=== PATIENT | female | born 1995 | race Two or more races ===

== ENCOUNTER 2016-08-07 12:08 | Emergency (ER) | payer OTHER ==
--- NOTE | 2016-08-07 14:39 | RAD ---
indication: Following trauma to the left temporal bone August 05, 2016 the patient reports "memory loss" right neck pain and bilateral arm numbness. COMPARISON: None A CT scan of the brain and c-spine was performed without intravenous contrast enhancement. Contiguous axial sections were obtained from the lung apices through the vertex. BRAIN: The ventricles, cisterns and sulci are within normal limits. No significant focal abnormality or mass effect is seen. The molina-white differentiation is adequately maintained. There is no evidence for intracranial hemorrhage. No significant bony abnormality is present. The mastoid air cells are appropriately aerated. The visualized paranasal sinuses are clear. C-SPINE: On the sagittal view images the cervical spine exhibits reversal of the normal cervical lordosis. The vertebral bodies and facet joints are otherwise appropriately aligned. There is no acute fracture or dislocation. The dens is intact. There is no widening of the atlantodental interval. There is no prevertebral soft tissue edema. The surrounding cervical spine musculature does not exhibit any gross inflammatory change. There is no hyperdense material in the cervical canal to indicate hemorrhage. There is no gross lymphadenopathy visualized. The visualized portion of the lung apices are clear. IMPRESSION: 1. No calvarial fracture or acute intracranial hemorrhage. 2. There is reversal of the normal cervical lordosis without identification of acute fracture or dislocation. In this clinical setting this appearance could be secondary to muscle spasm.
--- NOTE | 2016-08-07 15:05 | ED ---
Wero Haynes Billy, scribed for Carlos Ga MD on 08/07/16 at 1345 . Head Injury - HPI Summary HPI Summary: Patient is a 20 year-old female coming to [facility] for evaluation of a head injury 2 days ago. She had been skateboarding when the left temporal region of her head hit the asphalt. She was not wearing a helmet at the time and denies any LOC. She states that she did not have any significant symptoms at the time of the injury, but she had difficulty remembering her co-workers names yesterday, and she also felt nauseated later on in the day. This morning, she woke up with numbness in her left arm lasting 2 minutes. She fell back asleep and woke up on her back with bilateral arm numbness which also resolved after 2 minutes. At this time, she denies numbness in the arms, but she has "pins and needles in her hands, but they're almost back to normal." She has some photophobia. She also has had neck pain after the fall, which has improved with warm compresses. She denies any other injury or trauma to her trunk or extremities. - History Of Current Complaint Chief Complaint: EDHeadInjury Stated Complaint: HIT HEAD,CONFUSION Time Seen by Provider: 08/07/16 12:57 Hx Obtained From: Patient Mechanism Of Injury: Fall From A Standing Position - while skateboarding Onset/Duration: Traumatic Onset of Pain: Immediate Severity Currently: Moderate Severity Initially: Moderate Pain Intensity: 2 Pain Scale Used: 0-10 Numeric Location of Head Injury: Temporal Aggravating Factor(s): Other: - none Alleviating Factor(s): Other: - none Associated Signs And Symptoms: Confusion, Neck Pain, Nausea, Numbness, Visual Changes - photophobia - Allergies/Home Medications Allergies/Adverse Reactions: Allergies Allergy/AdvReac Type Severity Reaction Status Date / Time Amoxicillin Allergy Rash Verified 09/06/14 10:02 PMH/Surg Hx/FS Hx/Imm Hx Respiratory History: Reports: Hx Asthma - IN THE PAST, Hx Sleep Apnea Musculoskeletal History: Reports: Other Musculoskeletal History - MUSCLE & JOINT PAIN-GENERALIZED-? FIBROMYALGIA Sensory History: Reports: Hx Contacts or Glasses - GLASSES Denies: Hx Hearing Aid Opthamlomology History: Reports: Hx Contacts or Glasses - GLASSES - Surgical History Hx Anesthesia Reactions: No Infectious Disease History: No Infectious Disease History: Denies: Traveled Outside the [place] in Last 30 Days - Family History Known Family History: Positive: Diabetes - Social History Alcohol Use: Daily Substance Use Type: Reports: None Smoking Status (MU): Light Every Day Tobacco Smoker Review of Systems Positive: Photophobia. Negative: Blurred Vision, Diplopia Positive: Nausea. Negative: Vomiting Musculoskeletal: Other - Neck pain Neurological: Other - confusion Positive: Paresthesia, Numbness All Other Systems Reviewed And Are Negative: Yes Physical Exam Triage Information Reviewed: Yes Vital Signs On Initial Exam: Initial Vitals Temp Pulse Resp BP Pulse Ox 98.2 F 68 18 138/67 100 08/07/16 12:18 08/07/16 12:18 08/07/16 12:18 08/07/16 12:18 08/07/16 12:18 Vital Signs Reviewed: Yes Appearance: Positive: Well-Appearing, No Pain Distress Skin: Positive: Warm, Skin Color Reflects Adequate Perfusion, Dry Head/Face: Positive: Normal Head/Face Inspection Eyes: Positive: EOMI, TAMAR ENT: Positive: Normal ENT inspection Neck: Positive: Supple, Nontender Respiratory/Lung Sounds: Positive: Clear to Auscultation, Breath Sounds Present Cardiovascular: Positive: RRR Abdomen Description: Positive: Nontender, Soft Musculoskeletal: Positive: Normal, Strength/ROM Intact Neurological: Positive: Normal, Sensory/Motor Intact, Alert, Oriented to Person Place, Time Psychiatric: Positive: Affect/Mood Appropriate - Yaneli Coma Scale Coma Scale Total: 15 Diagnostics - Vital Signs Vital Signs Temp Pulse Resp BP Pulse Ox 08/07/16 12:47 98.2 F 68 18 138/67 98 08/07/16 12:18 98.2 F 68 18 138/67 100 - Laboratory Lab Statement: Any lab studies that have been ordered have been reviewed, and results considered in the medical decision making process. - CT Brain CT Interpretation Completed By: Radiologist - 1. No calvarial fracture or acute intracranial hemorrhage. 2. There is reversal of the normal cervical lordosis without identification of acute fracture or dislocation. In this clinical setting this appearance could be secondary to muscle spasm. Cervical Spine CT Interpretation Completed By: Radiologist - 1. No calvarial fracture or acute intracranial hemorrhage. 2. There is reversal of the normal cervical lordosis without identification of acute fracture or dislocation. In this clinical setting this appearance could be secondary to muscle spasm. Head Injury Course/Dx Course Of Treatment: NO CRITICAL CARE TIME Assessment/Plan: WELL IN ED. NORMAL NEUROLOGIC EXAM. RADICULOPATHY SX GONE. DISCUSSED CONCUSSION, NECK INJURY, RADICULOPTHY WITH PATIENT. SHE WILL F/U WITH PMD; WILL RETURN TO ED FOR AN RETURN/WORSENING OF RADICULOPATHY SX. PATIENT MAY NEED AN MRI IF SX RETURN. DISCHARGE HOME STABLE. - Diagnoses Provider Diagnoses: Concussion, Acute neck pain, Radiculopathy affecting upper extremity Discharge - Discharge Plan Condition: Stable Disposition: HOME Patient Education Materials: Concussion (ED), Cervical Radiculopathy (ED), Acute Neck Pain (ED) Forms: *Work Release Referrals: Neisha Romeo DO [Primary Care Provider] - Additional Instructions: FOLLOW UP WITH YOUR DOCTOR. RETURN TO THE EMERGENCY DEPARTMENT FOR ANY WORSENING OF YOUR CONDITION; WEAKNESS , NUMBNESS, DIFFICULTY WITH SPEECH OR VISION OR QUESTIONS OR CONCERNS. The documentation as recorded by the Wero doty Billy accurately reflects the service I personally performed and the decisions made by me, Carlos Ga MD.
[2016-08-07 15:16] VITALS: BP 129/84
== END 2016-08-07 15:16 | disposition home or self-care (01) ==
LOC: ED 12:08
DX: S06.0X0A Concussion without loss of consciousness, initial encounter (principal); R41.0 Disorientation, unspecified; M54.2 Cervicalgia; R11.0 Nausea; R20.0 Anesthesia of skin; F17.210 Nicotine dependence, cigarettes, uncomplicated; V00.131A Fall from skateboard, initial encounter; Y93.51 Activity, roller skating (inline) and skateboarding; Y92.9 Unspecified place or not applicable
CPT/HCPCS: 70450; 72125; 99282